=== PATIENT | female | born 1940 | race Caucasian/White ===

== ENCOUNTER → 2017-06-25 | Outpatient (CLI) | payer MEDICARE, OTHER ==
[~2017-06-25] MED LIST: ALB17R INH; ASCO100T PO; ASPI-1471 PO; BIOT250012 PO; CHOL100052 PO; CIP500 PO; DOCU-299 PO; FLU44R IH; FLU44R INH; GADOBENATE 529MG/1ML 15ML VIAL IVP ONE; LEVO50 PO; LEVO88TA43 PO; LOR5 PO; LUTE6CAP11 PO; METR-1 PO; MULT-820 PO; OXYGENHOME INH; PHENA200 PO; RANI-318 PO; SULF-170 PO; TAM4 PO; TAMS0.4C76 PO; TOLT4CAP13 PO
--- NOTE | 2017-06-25 10:47 | RADIOLOGY IMAGING REPORT ---
FACILITY: [facility] [place] PATIENT NAME: Nisha Luis : 1940 MR: [id number] V: [id number] EXAM DATE: ORDERING PHYSICIAN: WALDEMAR THACKER TECHNOLOGIST: Location: [facility] Patient: Nisha Luis : 1940 Visit/Account:[id number] Date of Sevice: 06/25/2017 BRAIN W W/O CONTRAST Dizziness for two weeks ADDITIONAL PERTINENT HISTORY: None. COMPARISON STUDIES: None. TECHNIQUE: Multi-planar, multi-sequence brain MRI was performed with and without IV contrast adminis tration. Contrast: 14 mL MultiHance FINDINGS: Ventricles / sulci / fissures: See below Masses / hemorrhage / midline shift: There is a 3.1 x 4.25 x 3.2 cm irregular enhancing mass in the left basal ganglia extending inferiorly into the left thalamus and left cerebral peduncle. Surroundi ng edema extends into the left side of the dieter into the left temporal lobe inferior left frontal par ietal lobe. There is extensive mass effect on the body and frontal horn and atria the left lateral v entricle and on the third ventricle. There is an 8 mm left to right midline shift. And subtle leftw ibis downward transtentorial herniation. There is mild mass effect on the left middle cerebral artery . There is an additional 4 mm enhancing lesion at the cortex of the right frontal lobe. There are s everal small foci of increased FLAIR signal intensity in the right periventricular white matter witho ut contrast enhancement restricted diffusion or mass effect which is likely nonspecific White matter: See above Jack-white differentiation: Normal. Extra-axial fluid collections: Negative. Intracranial vasculature and dural sinuses: As above Skull base / calvarium: Negative. Visualized mastoid air cells / paranasal sinuses: There is mild mucosal thickening in the ethmoid sin uses Orbits: Negative. Upper neck:Negative. IMPRESSION: There is 3.1 x 4.25 x 3.2 cm irregular enhancing mass in the left basal ganglia extending inferiorly into the left thalamus and left cerebral peduncle there is a large amount of surrounding edema as det cornelius above with an 8 mm left to right midline shift and subtle downward transtentorial herniation on the left. There is an additional 4 mm enhancing lesion in the cortex of the right frontal lobe Results were called to WALDEMAR THACKER at 06/25/2017 10:12 AM. Report Dictated By: Echo Feldman MD at 06/25/2017 10:06 AM Report E-Signed By: Echo Feldman MD at 06/25/2017 10:44 AM WSN:[email or web address]
== END ==
LOC: MRI 01:23
PROVIDERS: ATTEND Family Medicine
DX: R93.8 Abnormal findings on diagnostic imaging of other specified body structures (principal); R60.0 Localized edema
CPT/HCPCS: 36415; 70553; 82565; A9577